=== PATIENT | male | born 1995 | race Caucasian/White ===

== ENCOUNTER 2021-08-26 11:28 | Day surgery (SDC) | payer OTHER ==
[2021-08-21 11:43] LABS: BASOPHILS # (AUTO) 0.1 X10'3 (0-0.2); BASOPHILS % (AUTO) 0.8 % (0-1); EOSINOPHILS # (AUTO) 0.1 X10'3 (0-0.9); EOSINOPHILS % (AUTO) 1.1 % (0-6); LYMPHOCYTES # (AUTO) 2.9 X10'3 (1.1-4.8); LYMPHOCYTES % (AUTO) 27.5 % (21-51); MEAN CORPUSCULAR HEMOGLOBIN 30.6 PG (27.0-31.0); MEAN CORPUSCULAR HGB CONC 34.3 g/dL (33.0-36.5); MONOCYTES # (AUTO) 1.1 X10'3 (0-0.9); NEUTROPHILS # (AUTO) 6.4 X10'3 (1.8-7.7); NEUTROPHILS % (AUTO) 60.6 % (42-75); PRE OP HEMATOCRIT 46.9 % (42.0-52.0); PRE OP HEMOGLOBIN 16.1 g/dL (14.0-17.9); PRE OP PLATELET COUNT 339 X10'3 (140-440); RED BLOOD COUNT 5.27 X10'6 (4.70-6.10); RED CELL DISTRIBUTION WIDTH 13.3 % (11.5-14.5)
[2021-08-21 11:58] LABS: ALBUMIN 4.2 G/DL (3.4-5.0); ALBUMIN/GLOBULIN RATIO 1.2 (1.1-1.5); ALKALINE PHOSPHATASE 50 IU/L (46-116); BLOOD UREA NITROGEN 10 MG/DL (7-18); BUN/CREATININE RATIO 12.3 (5.4-32.0); CALCIUM 9.3 MG/DL (8.5-10.1); CHLORIDE 104 MMOL/L (99-107); CREATININE 0.81 MG/DL (0.60-1.10); PRE OP ALT 46 U/L (30-65); PRE OP ANION GAP 8 (8-16); PRE OP AST 25 U/L (10-37); PRE OP BILIRUB, TOTAL 0.5 MG/DL (0.0-1.0); PRE OP GLUCOSE 76 MG/DL (70-104); PRE OP POTASSIUM 4.2 MMOL/L (3.4-5.1); PRE OP SODIUM 141 MMOL/L (135-145); TOTAL CARBON DIOXIDE 29.4 MMOL/L (24-32); TOTAL PROTEIN 7.7 G/DL (6.4-8.2); eGFR > 90 ML/MIN
[~2021-08-26] VITALS: Ht 177.8 cm; Wt 127.0 kg
[2021-08-26] VITALS (13 sets, daily range): BP systolic 121–152; BP diastolic 72–97
[~2021-08-26 11:28] MED LIST: CYCL-394 PO; LORA10TA7 PO; albuterol 2.5 MG/3 ML nebule NEB ONE; ceFAZolin inj. 3,000 MG in normal saline 100ml IV soln 100 ML IV ONE; famotidine 20mg tablet PO ONE
[2021-08-26] MEDS ORDERED: ringers solution, lacted 1,000 ML IV SCH ×2 (13:18→14:40)
[2021-08-26] MEDS ORDERED: BUPIVACAINE liposomal/PF 13.3 MG/ML vial IM ONE (14:11)
[2021-08-26] MEDS ORDERED: midazolam 1 mg/ML 2ml injection ONE (14:12)
[2021-08-26] MEDS ORDERED: fentaNYL /PF 50mcg/ml 5ml ampule ONE (14:12)
[2021-08-26] MEDS ORDERED: dexamethasone sod phosphate 4mg/ml inj. ONE ×2 (14:34→16:55)
[2021-08-26] MEDS ORDERED: LIDOcaine 1%/PF 5ML 10 MG/ML VIAL ONE (14:34)
[2021-08-26] MEDS ORDERED: propofol inj 20 ML IV ONE (14:34)
[2021-08-26] MEDS ORDERED: rocuronium 10mg/ml inj IV ONE (14:34)
[2021-08-26] MEDS ORDERED: morphine 4 MG/ML inj SYRINge IV PRN (14:40)
[2021-08-26] MEDS ORDERED: proCHLORperazine 10 MG/2 ml inj IV PRN (14:40)
[2021-08-26] MEDS ORDERED: meperidine/PF 25mg/ml syringe IV PRN ×3 (14:40)
[2021-08-26] MEDS ORDERED: ondansetron/PF 4mg/2ml inj IV PRN (14:40)
[2021-08-26] MEDS ORDERED: morphine 2 MG/ML inj. syringe IV PRN (14:40)
[2021-08-26] MEDS ORDERED: BUPIVAcaine 0.5% inj/PF 30 ML ONE (14:54)
[2021-08-26] MEDS ORDERED: sevoflurane 250ml liquid IH ONE (14:59)
[2021-08-26] MEDS ORDERED: acetaminophen 1,000mg/100ml IV 100 ML IV ONE ×2 (15:54→16:55)
[2021-08-26] MEDS ORDERED: BUPIVAcaine 0.5% inj/PF 30 ml vial IJ ONE (15:58)
--- NOTE | 2021-08-26 16:42 | NUR ---
Received from OR via [facility], accompanied by Anesthesiologist DR HILL and report given by Anesthesiologist AND LEAF BINNER. PT VERY DROWSY, ABDOMEN W/3 LAP SITES W/AIXA CDI. Addendum: 08/26/21 at 1703 by Tiff Perez RN Amended: Links added.
[2021-08-26] MEDS ORDERED: sugammadex 200mg/2ml injection IV ONE (16:53)
[2021-08-26] MEDS ORDERED: neostigmine methylsulfate 1 MG/ML 10ml vial ONE (16:55)
[2021-08-26] MEDS ORDERED: glycopyrrolate 0.2mg/ml inj ONE (16:55)
[2021-08-26] MEDS ORDERED: ondansetron/PF 4mg/2ml inj ONE (16:55)
[2021-08-26] MEDS ORDERED: ketorolac trometh. 30mg/ml inj. IV ONE (17:50)
--- NOTE | 2021-08-26 18:42 | NUR ---
PT STATES PAIN IMPROVED FROM EARLIER BUT STILL PAINFUL, 30 MG IV TORADOL GIVEN PT DID NOT WANT TO TAKE ANY NARCOTICS AT THIS TIME. EDUCATED ON PAIN CONTROL AND ALTERNATING TYLENOL AND IBUPROFEN IF PT IS NOT GOING TO TAKE HIS PRESCRIPTION PAIN MED. D/C INSTRUCTIONS GIVEN AND GONE OVER W/PT AND PTS WHO VERBALIZED UNDERSTANDING. PT D/CD TO HOME VIA W/C TO PRIVATE VEHICLE W/O INCIDENT. Addendum: 08/26/21 at 1904 by Tiff Perez RN Amended: Links added.
== END 2021-08-26 18:42 | disposition home or self-care (01) ==
LOC: PAS 11:28
PROVIDERS: ATTEND Surgery
DX: K42.9 Umbilical hernia without obstruction or gangrene (principal); E66.9 Obesity, unspecified; Z68.41 Body mass index [BMI] 40.0-44.9, adult; Z20.822 Contact with and (suspected) exposure to COVID-19; Z79.899 Other long term (current) drug therapy; Z87.891 Personal history of nicotine dependence
CPT/HCPCS: 36415; 49652; 64488; 80053; 82948; 85025; 93005; C1781; C9290; J0131; J0690; J1100; J1885; J2175; J2250; J2405; J2704; J2710; J3010; J3490; J7030; J7120; S0020; U0003; U0005; Z7506; Z7508; Z7512; A4215; A4618; A7000